=== PATIENT | female | born 1970 ===

== ENCOUNTER → 2017-02-25 | Outpatient (CLI) | payer OTHER ==
--- NOTE | 2017-02-26 09:51 | RADIOLOGY REPORT (SQ) ---
EXAM DESCRIPTION: MRI LUMBAR SPINE COMBO COMPLETED DATE/TIME: 02/25/2017 5:53 pm REASON FOR STUDY: RADICULOPATHY, LUMBAR REGION M54.16 RADICULOPATHY, LUMBAR REGION COMPARISON: None. TECHNIQUE: Sagittal and Axial imaging includes T1, T1 post gadolinium, T2, STIR and gradient echo se quences. Coronal T2/HASTE imaging. CONTRAST TYPE AND DOSE: Not provided. RENAL FUNCTION: GFR > 60. LIMITATIONS: None. FINDINGS: VISUALIZED UPPER ABDOMEN: Limited evaluation. No acute or suspicious findings suggested. SEGMENTATION: No transitional anatomy. The lowest well-developed disc space is labeled L5-S1. ALIGNMENT: Anatomic. VERTEBRAE: Intact. No fractures. BONE MARROW: Mild marrow edema along the endplates at L5-S1. Otherwise normal. DISC SIGNAL: Decreased disc signal and height at L5-S1. Otherwise preserved. POSTERIOR ELEMENTS: Generally intact. No pars defect evident. Dorsal decompression has been perfor med at L5-S1. HARDWARE: None in the spine. CORD AND CONUS: Normal in size and signal intensity. Conus at the appropriate level. SOFT TISSUES: No aortic aneurysm seen. No bulky retroperitoneal adenopathy or mass. No paraspinal mas s or fluid. L1-L2: No significant spinal stenosis or exit foraminal stenosis. L2-L3: No significant spinal stenosis or exit foraminal stenosis. L3-L4: No significant spinal stenosis or exit foraminal stenosis. L4-L5: No significant spinal stenosis or exit foraminal stenosis. L5-S1: Disc height loss with mild disc osteophyte complex. There appears to be slightly inferiorly e xtending anterior epidural scar, particularly adjacent to the left S1 nerve root. This looks like re latively solidly enhancing tissue, scar rather than recurrent disc hernia. LOWER THORACIC: Incompletely imaged. No stenosis seen. SACRUM: Visualized upper sacrum intact. ENHANCEMENT: As above. OTHER: No other significant findings. IMPRESSION: 1. Suspect anterior inferiorly extending epidural scar at the operative level, L5-S1. N o suggestion of recurrent or persistent disc hernia or overt fragment. TECHNICAL DOCUMENTATION: JOB ID: [id number] [employer]- All Rights Reserved
== END ==
LOC: RAD 16:29
PROVIDERS: ATTEND Specialist
DX: M54.16 Radiculopathy, lumbar region (principal)
CPT/HCPCS: 82565; 72158; A9577